=== PATIENT | male | born 1945 | race Two or more races ===

== ENCOUNTER 2022-02-11 12:58 | Emergency (ER) | payer OTHER ==
[~2022-02-11] VITALS: Ht 152.4 cm; Wt 77.1 kg
[2022-02-11] MEDS ORDERED: ENALAPRIL MALEAT5 MG PO (13:22)
[2022-02-11] MEDS ORDERED: ATORVASTATIN CA10 MG PO (13:22)
[2022-02-11] MEDS ORDERED: DONEPEZIL HCL OD5 MG PO (13:22)
== END 2022-02-11 14:14 | disposition home or self-care (01) ==
LOC: ER 12:58
DX: S01.82XA Laceration with foreign body of other part of head, initial encounter (principal); W06.XXXA Fall from bed, initial encounter; Y93.89 Activity, other specified; Y92.013 Bedroom of single-family (private) house as the place of occurrence of the external cause; I10 Essential (primary) hypertension; G30.9 Alzheimer's disease, unspecified; F02.80 Dementia in other diseases classified elsewhere, unspecified severity, without behavioral disturbance, psychotic disturbance, mood disturbance, and anxiety